=== PATIENT | female | born 1990 | race Two or more races ===

== ENCOUNTER 2021-04-19 12:54 | Emergency (ER) | payer OTHER, MEDICAID, SELFPAY ==
[2021-04-19 13:42] VITALS: BP 137/65; PULSE 78; RESP 18; TEMP 36.4; O2SAT 97; BMI 47.8
[2021-04-19 14:45] LABS: MANUAL DIFF FLAG NO
[2021-04-19 14:46] LABS: Basophils Percent Auto 0.4 % (0-2); Eosinophils Absolute Auto 0.1 X10*3/uL (0.0-0.4); Eosinophils Percent Auto 0.9 % (0-4); Hematocrit 38.7 % (37-47); Hemoglobin 13.2 g/dl (12.0-16.0); Imm Gran Abs Auto 0.03 X10*3/uL (0.00-0.03); Imm Gran Pct Auto 0.3 % (0.0-0.4); Lymphocytes Absolute Auto 3.4 X10*3/uL (1.2-4.9); Lymphocytes Percent Auto 30.1 % (20-40); Mean Corpuscular HGB Conc 34.1 g/dl (31.0-35.0); Mean Corpuscular Hemoglobin 30.1 pg (27.0-33.0); Mean Corpuscular Volume 88.4 fL (80-98); Mean Platelet Volume 9.8 fL (9.4-12.3); Monocytes Absolute Auto 0.6 X10*3/uL (0.1-1.2); Monocytes Percent Auto 5.6 % (2-11); Neutrophils Percent Auto 62.7 % (45-73); Platelet Count 286 X10*3/uL (160-400); Red Blood Count 4.38 X10*6/uL (4.20-5.50); Red Cell Distribution Width 12.8 % (11.0-16.0); White Blood Count 11.1 X10*3/uL (4.8-10.8)
[2021-04-19 15:01] LABS: Alanine Aminotransferase 17 U/L (0-31); Albumin Level 4.1 g/dL (3.5-5.0); Alkaline Phosphatase 63 U/L (39-117); Anion Gap 11 (12-20); Aspartate Amino Transferase 17 U/L (5-31); Bilirubin Total 0.2 mg/dL (0.0-1.0); Blood Urea Nitrogen 7 mg/dL (9-16); Calcium 9.7 mg/dL (8.4-10.2); Carbon Dioxide 28 mmol/L (22-29); Chloride 106 mmol/L (96-108); Creatinine Clr Calc Pharmacy 151.6; Estimated Glomerular Filt Rate > 60; Glucose Random 100 mg/dL (60-115); Potassium 4.2 mmol/L (3.3-5.1); Sodium 141 mmol/L (135-145); Total Protein 8.3 g/dL (6.5-8.0)
[2021-04-19 15:03] LABS: COVID-19 Test Negative (Negative); IDNOW Serial# 9DD0AD1C
--- NOTE | 2021-04-19 18:06 | ED_ITS ---
HPI - General Adult General Chief complaint: General Medical Stated complaint: fever Time Seen by Provider: 04/19/21 18:06 Source: patient and slip caster Mode of arrival: ambulatory Limitations: no limitations History of Present Illness HPI narrative: 31-year-old female came in for evaluation of fever and right ear pain. Subjective fever for the past 3 days, complaining of right ear pain, sore throat, patient exposed to a sick family member last week. Patient otherwise decline coughing or fever. Related Data Previous Rx's Medication Instructions Recorded ciprofloxacin HCl 250 mg tablet 250 mg PO BID 3 Days #6 tab 04/07/21 amoxicillin 500 mg tablet 500 mg PO BID #14 tab 04/19/21 Allergies Allergy/AdvReac Type Severity Reaction Status Date / Time No Known Allergies Allergy Verified 04/07/21 17:50 Review of Systems Review of Systems: All other systems are reviewed and are negative Constitutional: Reports as per HPI and Reports no additional constitutional complaints Eyes: Reports as per HPI and Reports no additional eye complaints Reports system reviewed and no additional complaints, except as documented Cardiovascular: Reports as per HPI and Reports no additional cardiovascular complaints Respiratory: Reports as per HPI and Reports no additional respiratory complaints Gastrointestinal: Reports as per HPI and Reports no additional gastrointestinal complaints Genitourinary: Reports no additional female genitourinary complaints Musculoskeletal: Reports no additional musculoskeletal complaints Skin/Breast: Reports system reviewed and no additional complaints, except as docu Psychiatric: Reports no additional psychiatric complaints Endocrine: Reports no additional endocrine complaints Hematologic/Lymphatic: Reports no additional hematologic/lymphatic complaints Allergic/Immunologic: Reports no additional allergic/immunologic complaints Reports system reviewed and no additional complaints, except as documented and Reports Abnormal speech present [facility] Past Medical History Medical History Chest pain CLIFTON (generalized anxiety disorder) Mild recurrent major depression Morbid obesity due to excess calories Neck mass Surgical History No pertinent past surgical history Family History Family History Mother Stroke Father Cancer Maternal Aunt Breast cancer Social History Social History Housing: House (living with someone) Alcohol intake: never Patient Tobacco Use Status: Never used Tobacco e-Cigarette/Vaping Use: Never Used Second Hand Smoke Exposure: No Advance Directives: No Advance Directives Information Provided: No Patient : No service: No Current occupational status: disabled Physical Exam Vital Signs: Vital Signs: Last Vital Signs Temp 97.6 F 04/19/21 13:42 Pulse 78 04/19/21 13:42 Resp 18 04/19/21 13:42 BP 137/65 04/19/21 13:42 Pulse Ox 97 04/19/21 13:42 Body Mass Index 47.8 Vital signs have been reviewed as appeared to be correct. Blood pressure normal. Heart rate normal. Respiration rate normal. Temperature normal. Oxygen saturation normal. Appearance: Alert. Oriented X3. No acute distress. Head: Normal external exam. Normocephalic. Atraumatic. No [place] signs noted. No raccoon eyes noted Eyes: PERRLA. EOMI. Conjunctiva and sclera normal. Eyelids normal. ENT: Right TM erythema, Pharynx normal. Uvula midline. Moist mucous membranes. No trismus noted. No drooling noted. No muffled voice noted. Neck: Normal inspection. Neck supple. FROM. No adenopathy. Thyroid Normal. No meningeal signs. No neck mass noted. CVS: Normal heart rate and rhythm. Heart sound normal. No murmurs noted. Pulses normal throughout. Respiratory: No respiratory distress. Painless inspiration. Breath sounds normal. No wheezes/rales/rhonchi noted. Chest nontender. No accessory muscle usage noted or decreased air movement noted. Abdomen: Soft and nontender. Bowel sounds normal in all 4 quadrants. No distention noted. No organomegaly noted. No visible injury noted. Back: No CVA tenderness. Full range of motion noted. Skin: Skin warm and dry. Normal skin color. Normal skin turgor. No rashes/lesions/lacerations noted. Extremities: No lower extremity edema. Extremities exhibit normal range of motion. Extremities nontender. Neuro: Oriented X 3. Cranial nerve exam: II-XII are grossly intact No motor deficit. No sensory deficit. Reflexes normal. Course Course Course Narrative: Assessment and plan. 31-year-old female came in for evaluation of fever, physical exam is consistent with right otitis media, patient is negative for COVID. Will start the patient on amoxicillin. Medical Decision Making Lab Data Lab results reviewed: Yes I reviewed the patient's lab results. Result diagrams: 04/19/21 14:38 04/19/21 14:38 Labs: Lab Results 04/19/21 04/19/21 04/19/21 Range/Units 14:34 14:38 14:38 WBC 11.1 H (4.8-10.8) X10*3/uL RBC 4.38 (4.20-5.50) X10*6/uL Hgb 13.2 (12.0-16.0) g/dl Hct 38.7 (37-47) % MCV 88.4 (80-98) fL MCH 30.1 (27.0-33.0) pg MCHC 34.1 (31.0-35.0) g/dl RDW 12.8 (11.0-16.0) % Plt Count 286 (160-400) X10*3/uL MPV 9.8 (9.4-12.3) fL Immature Gran % (Auto) 0.3 (0.0-0.4) % Neut % (Auto) 62.7 (45-73) % Lymph % (Auto) 30.1 (20-40) % [place] % (Auto) 5.6 (2-11) % Eos % (Auto) 0.9 (0-4) % Baso % (Auto) 0.4 (0-2) % Lymph # (Auto) 3.4 (1.2-4.9) X10*3/uL [place] # (Auto) 0.6 (0.1-1.2) X10*3/uL Eos # (Auto) 0.1 (0.0-0.4) X10*3/uL Baso # (Auto) 0.0 (0.0-0.2) X10*3/uL Abs Immat Gran (auto) 0.03 (0.00-0.03) X10*3/uL Absolute Neuts (auto) 7.0 (2.0-8.3) X10*3/uL Absolute Nucleated RBC 0.000 (0.0-0.012) X10*3/uL Nucleated RBC % (auto) 0.0 (0.0-0.2) /100WBC Sodium 141 (135-145) mmol/L Potassium 4.2 (3.3-5.1) mmol/L Chloride 106 (96-108) mmol/L Carbon Dioxide 28 (22-29) mmol/L Anion Gap 11 L (12-20) BUN 7 L (9-16) mg/dL Creatinine 0.67 (0.5-1.4) mg/dL Estim Creat Clear Calc 151.6 Estimated GFR > 60 Random Glucose 100 (60-115) mg/dL Calcium 9.7 (8.4-10.2) mg/dL Total Bilirubin 0.2 (0.0-1.0) mg/dL AST 17 (5-31) U/L ALT 17 (0-31) U/L Alkaline Phosphatase 63 (39-117) U/L Total Protein 8.3 H (6.5-8.0) g/dL Albumin 4.1 (3.5-5.0) g/dL COVID-19 (ROXANNE) Negative (Negative) COVID-19 Clin Com See Note Discharge Plan Discharge Clinical Impression: Otitis media Qualifiers: Otitis media type: unspecified Chronicity: acute Qualified Code(s): H66.90 - Otitis media, unspecified, unspecified ear Patient Disposition: Home, Self-Care Instructions: Ear Infection (ED) Prescriptions: New amoxicillin 500 mg tablet 500 mg PO BID Qty: 14 RF: 0 No Action ciprofloxacin HCl 250 mg tablet 250 mg PO BID 3 Days Qty: 6 RF: 0 Referrals: Rosey Young MD [Primary Care Provider] - 2 days
== END 2021-04-19 18:42 | disposition home or self-care (01) ==
PROVIDERS: Emergency Provider Emergency Medicine; PCP Internal Medicine
DX: H66.90 Otitis media, unspecified, unspecified ear (principal); R50.9 Fever, unspecified; Z20.822 Contact with and (suspected) exposure to COVID-19; Z79.899 Other long term (current) drug therapy
CPT/HCPCS: 36415; 80053; 85025; 87635; 99283

== ENCOUNTER → 2021-05-13 11:17 | Outpatient (BNVA) | payer OTHER, MEDICAID, SELFPAY | PROVIDERS: PCP Internal Medicine; Referring Provider Internal Medicine; Visit Provider Surgery | DX: L72.0 Epidermal cyst (principal) | CPT/HCPCS: 99202 ==

== ENCOUNTER 2021-06-30 11:20 | Outpatient (REF) | payer OTHER, SELFPAY ==
[2021-06-30 13:30] LABS: COVID-19 Test Negative (Negative); IDNOW Serial# 16C4AD1C
== END 2021-06-30 11:21 | disposition home or self-care (01) ==
LOC: HO.LAB 11:20
PROVIDERS: Visit Provider Internal Medicine
DX: Z20.822 Contact with and (suspected) exposure to COVID-19 (principal)
CPT/HCPCS: 36415; 87635; C9803

== ENCOUNTER 2021-07-29 20:30 | Emergency (ER) | payer OTHER, SELFPAY ==
--- NOTE | 2021-07-29 20:36 | ED_ITS ---
HPI - Chest Pain General Chief Complaint: Chest Pain Stated Complaint: anxiety Time Seen by Provider: 07/29/21 20:35 Source: patient Mode of arrival: ambulatory Limitations: no limitations History of Present Illness HPI narrative: patient with morbidly obese with history of recurrent chest pain withl anxiety disorder and depression BiBA for chest pain started 2 hours ago with anxiety him and that in the past patient does get pain almost every month. No diaphoresis no shortness of breath pain increases on palpation Related Data Previous Rx's Medication Instructions Recorded ciprofloxacin HCl 250 mg tablet 250 mg PO BID 3 Days #6 tab 04/07/21 amoxicillin 500 mg tablet 500 mg PO BID #14 tab 04/19/21 lorazepam 1 mg tablet (Ativan) 1 mg PO BEDTIME PRN #10 tab 07/29/21 Allergies Allergy/AdvReac Type Severity Reaction Status Date / Time No Known Allergies Allergy Verified 05/13/21 11:31 Review of Systems Verdana 4l Review of Systems: Yes all other systems are reviewed and Verdana 4d are negative PMFSH Past Medical History Medical History Chest pain Epidermal cyst of neck [place] (generalized anxiety disorder) Mild recurrent major depression Morbid obesity due to excess calories Neck mass Surgical History No pertinent past surgical history Family History Family History Mother Stroke Father Cancer Maternal Aunt Breast cancer Social History Social History Housing: House (living with someone) Alcohol intake: never Patient Tobacco Use Status: Never used Tobacco e-Cigarette/Vaping Use: Never Used Second Hand Smoke Exposure: No Advance Directives: No Advance Directives Information Provided: No Patient : No service: No Current occupational status: disabled Physical Exam Verdana 4l Vital Signs: Verdana 4d Verdana 4d Vital Signs: Verdana 4d Verdana 4Bd Last Vital Signs Verdana 4d Software Development Leader New 4d Software Development Leader New 4d Temp 98.3 F 07/29/21 20:40 Software Development Leader New 4d Pulse 102 H 07/29/21 20:40 Software Development Leader New 4d Resp 17 07/29/21 20:40 BP 152/79 H 07/29/21 20:40 Pulse Ox 96 07/29/21 20:40 BMI result Body Mass Index 47.1 Appearance: Alert. Oriented X3. No acute distress. anxious Eyes: no pelvic ENT: Pharynx normal. Oral Mucosa moist Neck: Normal inspection. Neck supple. CVS: sinus tachycardia No murmur/ gallopPulses normal. mid chest wall tenderness Respiratory: No respiratory distress. Equal air entry bilateral, no wheezing/rales/rhonchi Abdomen: Soft and nontender. Bowel sounds are present, no mass palpable, no CVA tenderness Skin: Skin warm and dry. Normal skin color. Normal skin turgor. Extremities: No lower extremity edema. No calf tenderness Neuro: Oriented X 3. MDM - Chest Pain MDM Narrative Medical decision making narrative: patient atypical chest pain with anxiety no acute EKG changes troponin negative discharge patient home on anxiety medications Ativan Lab Data Attestation: I reviewed the patient's lab results. Labs: Lab Results 07/29/21 Range/Units 20:52 Troponin I High Sens < 3.5 (<3.5-17.0) ng/L ECG Data ECG #1: Attestation: I personally reviewed and interpreted this ECG as follows: Interpretation: 7 seconds and he with heart rate of 102 beats per normal intervals normal axis no acute ST wave changes impression sinus tachycardia Discharge Plan Discharge Clinical Impression: CLIFTON (generalized anxiety disorder), Atypical chest pain Patient Disposition: Home, Self-Care Instructions: Chest Pain (DC), Anxiety (ED) Additional Instructions: take medication for anxiety as advised and follow up with your PCP Prescriptions: New lorazepam [Ativan] 1 mg tablet 1 mg PO BEDTIME PRN (Reason: anxiety) Qty: 10 0RF No Action amoxicillin 500 mg tablet 500 mg PO BID Qty: 14 0RF ciprofloxacin HCl 250 mg tablet 250 mg PO BID 3 Days Qty: 6 0RF
[2021-07-29 20:40] VITALS: BP 152/79; PULSE 102; RESP 17; TEMP 36.8; O2SAT 96; BMI 47.1
--- NOTE | 2021-07-29 20:53 | ECG_ITS ---
Test Reason : CP Blood Pressure : / mmHG Vent. Rate : 102 BPM Atrial Rate : 102 BPM P-R Int : 136 ms QRS Dur : 098 ms QT Int : 364 ms P-R-T Axes : 043 019 020 degrees QTc Int : 474 ms Sinus tachycardia Otherwise normal ECG No previous ECGs available Referred By: Derek Mena Electronically Signed By:ENEDINA WYNN MD
[2021-07-29] MEDS: LORazepam 1 MG TABLET 2 MG PO (21:03)
[2021-07-29 21:16] LABS: Troponin-I High Sensitivity < 3.5 ng/L (<3.5-17.0)
== END 2021-07-29 21:44 | disposition home or self-care (01) ==
PROVIDERS: Emergency Provider Internal Medicine; PCP Internal Medicine
DX: R07.89 Other chest pain (principal); F41.1 Generalized anxiety disorder
CPT/HCPCS: 36415; 84484; 93005; 99283

== ENCOUNTER 2021-08-26 10:20 | Outpatient (REF) | payer OTHER, SELFPAY ==
[2021-08-26 10:45] LABS: MANUAL DIFF FLAG NO
[2021-08-26 10:49] LABS: Basophils Percent Auto 0.3 % (0-2); Eosinophils Absolute Auto 0.1 X10*3/uL (0.0-0.4); Eosinophils Percent Auto 1.1 % (0-4); Hematocrit 38.2 % (37.0-47.0); Hemoglobin 12.8 g/dl (12.0-16.0); Imm Gran Abs Auto 0.06 X10*3/uL (0.00-0.03); Imm Gran Pct Auto 0.6 % (0.0-0.4); Lymphocytes Absolute Auto 4.2 X10*3/uL (1.2-4.9); Mean Corpuscular HGB Conc 33.5 g/dl (31.0-35.0); Mean Corpuscular Volume 89.7 fL (80.0-98.0); Mean Platelet Volume 10.2 fL (9.4-12.3); Monocytes Absolute Auto 0.6 X10*3/uL (0.1-1.2); Monocytes Percent Auto 6.5 % (2-11); Neutrophils Absolute Auto 4.9 x10*3/uL (2.0-8.3); Neutrophils Percent Auto 49.5 % (45-73); Platelet Count 298 X10*3/uL (160-400); Red Blood Count 4.26 X10*6/uL (4.20-5.50); White Blood Count 9.9 X10*3/uL (4.8-10.8)
[2021-08-26 11:30] LABS: Alanine Aminotransferase 17 U/L (0-31); Albumin Level 3.9 g/dL (3.5-5.0); Alkaline Phosphatase 62 U/L (39-117); Anion Gap 11 (12-20); Aspartate Amino Transferase 15 U/L (5-31); Bilirubin Total 0.4 mg/dL (0.0-1.0); Blood Urea Nitrogen 8 mg/dL (9-16); Calcium 8.6 mg/dL (8.4-10.2); Carbon Dioxide 26 mmol/L (22-29); Chloride 106 mmol/L (96-108); Cholesterol 172 mg/dL; Estimated Glomerular Filt Rate > 60; Glucose Fasting 108 mg/dL (60-99); HDL Cholesterol 34 mg/dL; LDL Cholesterol Calculated 79 mg/dl; Sodium 139 mmol/L (135-145); Total Protein 7.7 g/dL (6.5-8.0); Triglycerides 297 mg/dL
[2021-08-26 11:52] LABS: Thyroid Stimulating Hormone 13.86 uIU/mL (0.32-4.0)
[2021-08-30 13:41] LABS: Vitamin D 25-OH, D2 <4 ng/mL; Vitamin D 25-OH, D3 11 ng/mL; Vitamin D 25-OH, Total 11 ng/mL (30-100)
== END 2021-08-26 10:21 | disposition home or self-care (01) ==
LOC: HO.LAB 10:20
PROVIDERS: PCP Internal Medicine; Visit Provider Internal Medicine
DX: E66.01 Morbid (severe) obesity due to excess calories (principal); E78.5 Hyperlipidemia, unspecified; D64.9 Anemia, unspecified; E55.9 Vitamin D deficiency, unspecified
CPT/HCPCS: 36415; 80053; 80061; 82306; 84443; 85025

== ENCOUNTER → 2021-09-01 10:21 | Outpatient (REF) | payer OTHER, SELFPAY ==
--- NOTE | 2021-09-01 10:25 | CA_ITS ---
Acquisition Time: 2021-09-01 10:57:30 Total Exercise Time: 00:05:16 Test Indications: Chest Pain Medications: LORAZAPAM SERTRALINE Protocol: KLARISSA Max HR: 160 BPM 85% of Pred: 187 BPM Max BP: 204/062 mmHG Max Work Load: 7.0 METS Exercise stress test with exercise 5 min 16 sec of Klarissa protocol, with mild sob, no chest discomfort, with fatigue and request to stop, without arrythmia, with hypertensive response to exercise with max BP 204/62, without EKG changes meeting criteria for ischemia. In recovery her BP improved to 130/80 after 4 min rest. Test reviewed with Dr Young. Referred By: Rosey Lantigua Overread By: MONTSE LINARES
== END ==
LOC: HO.CARD 10:21
PROVIDERS: PCP Internal Medicine; Visit Provider Internal Medicine
DX: R07.9 Chest pain, unspecified (principal)
CPT/HCPCS: 93017

== ENCOUNTER 2021-11-16 12:06 | Outpatient (REF) | payer OTHER, SELFPAY ==
[2021-11-16 14:12] LABS: Free T4 (Free Thyroxine) 0.78 ng/dL (0.71-1.85); Thyroid Stimulating Hormone 3.56 uIU/mL (0.32-4.0)
[2021-11-18 01:35] LABS: Thyroglobulin Antibodies 14 IU/mL (< or = 1); Thyroid Peroxidase Antibodies 821 IU/mL (<9)
== END 2021-11-16 12:07 | disposition home or self-care (01) ==
LOC: HO.LAB 12:06
PROVIDERS: PCP Internal Medicine; Visit Provider Internal Medicine
DX: R79.89 Other specified abnormal findings of blood chemistry (principal)
CPT/HCPCS: 36415; 84439; 84443; 86376; 86800

== ENCOUNTER 2022-01-21 19:08 | Emergency (ER) | payer OTHER, SELFPAY ==
--- NOTE | 2022-01-21 19:13 | ECG_ITS ---
Test Reason : CP Blood Pressure : / mmHG Vent. Rate : 109 BPM Atrial Rate : 109 BPM P-R Int : 136 ms QRS Dur : 090 ms QT Int : 352 ms P-R-T Axes : 044 014 012 degrees QTc Int : 474 ms Sinus tachycardia Otherwise normal ECG When compared with ECG of 29-JUL-2021 20:36, No significant change was found Referred By: Generic ED Physician Electronically Signed By:Josh Young
[2022-01-21 19:17] VITALS: BP 135/75; PULSE 111; RESP 18; TEMP 37.1; O2SAT 100; BMI 64.5
[2022-01-21 20:04] LABS: MANUAL DIFF FLAG NO
[2022-01-21 20:06] LABS: Basophils Absolute Auto 0.1 X10*3/uL (0.0-0.2); Basophils Percent Auto 0.4 % (0-2); Eosinophils Absolute Auto 0.1 X10*3/uL (0.0-0.4); Eosinophils Percent Auto 0.7 % (0-4); Hematocrit 39.6 % (37.0-47.0); Hemoglobin 13.5 g/dl (12.0-16.0); Imm Gran Abs Auto 0.03 X10*3/uL (0.00-0.03); Imm Gran Pct Auto 0.3 % (0.0-0.4); Lymphocytes Absolute Auto 3.4 X10*3/uL (1.2-4.9); Lymphocytes Percent Auto 28.7 % (20-40); Mean Corpuscular HGB Conc 34.1 g/dl (31.0-35.0); Mean Corpuscular Hemoglobin 30.1 pg (27.0-33.0); Mean Corpuscular Volume 88.2 fL (80.0-98.0); Mean Platelet Volume 10.8 fL (9.4-12.3); Monocytes Absolute Auto 0.6 X10*3/uL (0.1-1.2); Monocytes Percent Auto 5.2 % (2-11); Neutrophils Absolute Auto 7.6 x10*3/uL (2.0-8.3); Neutrophils Percent Auto 64.7 % (45-73); Platelet Count 274 X10*3/uL (160-400); Red Blood Count 4.49 X10*6/uL (4.20-5.50); Red Cell Distribution Width 12.6 % (11.0-16.0); White Blood Count 11.8 X10*3/uL (4.8-10.8)
[2022-01-21 20:23] LABS: Alanine Aminotransferase 21 U/L (0-31); Albumin Level 4.2 g/dL (3.5-5.0); Alkaline Phosphatase 72 U/L (39-117); Anion Gap 11 (12-20); Aspartate Amino Transferase 16 U/L (5-31); Bilirubin Total 0.2 mg/dL (0.0-1.0); Blood Urea Nitrogen 6 mg/dL (9-16); Calcium 8.7 mg/dL (8.4-10.2); Carbon Dioxide 26 mmol/L (22-29); Chloride 106 mmol/L (96-108); Creatinine Clr Calc Pharmacy 190.5; Estimated Glomerular Filt Rate > 60; Glucose Random 137 mg/dL (60-115); Potassium 3.7 mmol/L (3.3-5.1); Sodium 139 mmol/L (135-145); Total Protein 8.4 g/dL (6.5-8.0)
[2022-01-21 20:24] LABS: Troponin-I High Sensitivity < 3.5 ng/L (<3.5-17.0)
[2022-01-21 20:49] LABS: COVID-19 Test Negative (Negative); IDNOW Serial# 55D5AD1C
[2022-01-21 22:48] VITALS: BP 111/60; PULSE 104; RESP 18; TEMP 37.1; O2SAT 96
[2022-01-22 00:45] LABS: Lipase 31 U/L (8-78)
== END 2022-01-22 00:52 | disposition left against medical advice (07) ==
PROVIDERS: Emergency Medicine; Emergency Provider Emergency Medicine; PCP Internal Medicine
DX: R07.9 Chest pain, unspecified (principal); Z20.822 Contact with and (suspected) exposure to COVID-19; R51.9 Headache, unspecified; E66.01 Morbid (severe) obesity due to excess calories; Z68.44 Body mass index [BMI] 60.0-69.9, adult
CPT/HCPCS: 36415; 80053; 83690; 84484; 85025; 87635; 93005; 99283

== ENCOUNTER 2022-02-09 14:05 | Emergency (ER) | payer OTHER, SELFPAY ==
[2022-02-09 15:44] VITALS: BP 120/53; PULSE 103; RESP 18; TEMP 36.8; O2SAT 97; BMI 42.2
[2022-02-09 15:58] LABS: MANUAL DIFF FLAG NO
[2022-02-09 16:00] LABS: Basophils Percent Auto 0.3 % (0-2); Eosinophils Absolute Auto 0.1 X10*3/uL (0.0-0.4); Eosinophils Percent Auto 0.3 % (0-4); Hematocrit 39.2 % (37.0-47.0); Hemoglobin 13.3 g/dl (12.0-16.0); Imm Gran Abs Auto 0.05 X10*3/uL (0.00-0.03); Imm Gran Pct Auto 0.3 % (0.0-0.4); Lymphocytes Percent Auto 19.8 % (20-40); Mean Corpuscular HGB Conc 33.9 g/dl (31.0-35.0); Mean Corpuscular Volume 88.5 fL (80.0-98.0); Mean Platelet Volume 9.7 fL (9.4-12.3); Monocytes Absolute Auto 0.6 X10*3/uL (0.1-1.2); Monocytes Percent Auto 3.9 % (2-11); Neutrophils Absolute Auto 11.3 x10*3/uL (2.0-8.3); Neutrophils Percent Auto 75.4 % (45-73); Platelet Count 293 X10*3/uL (160-400); Red Blood Count 4.43 X10*6/uL (4.20-5.50); Red Cell Distribution Width 12.6 % (11.0-16.0)
[2022-02-09 16:27] LABS: Alanine Aminotransferase 18 U/L (0-31); Alkaline Phosphatase 62 U/L (39-117); Anion Gap 14 (12-20); Aspartate Amino Transferase 18 U/L (5-31); Bilirubin Total 0.4 mg/dL (0.0-1.0); Blood Urea Nitrogen 7 mg/dL (9-16); Calcium 8.9 mg/dL (8.4-10.2); Carbon Dioxide 25 mmol/L (22-29); Chloride 102 mmol/L (96-108); Creatinine Clr Calc Pharmacy 137.8; Estimated Glomerular Filt Rate > 60; Glucose Random 153 mg/dL (60-115); Lipase 25 U/L (8-78); Sodium 137 mmol/L (135-145); Total Protein 8.2 g/dL (6.5-8.0)
[2022-02-09 20:44] VITALS: BP 135/77; PULSE 108; TEMP 36.5; O2SAT 95
== END 2022-02-10 01:49 | disposition left against medical advice (07) ==
LOC: HO.ED 02-10 01:48
PROVIDERS: Emergency Medicine; Emergency Provider Emergency Medicine; PCP Internal Medicine
DX: R10.11 Right upper quadrant pain (principal)
CPT/HCPCS: 36415; 80053; 83690; 85025; 99282; 99283

== ENCOUNTER 2022-02-11 11:37 | Inpatient (IN) | payer OTHER, SELFPAY ==
--- NOTE | ~2022-02-11 | CT_ITS ---
EXAMINATION: CT abdomen pelvis wo con CLINICAL INFORMATION: Abdominal pain abscess right flank area. COMPARISON: No prior CT available for comparison. TECHNIQUE: Multidetector volumetric imaging was performed from the superior aspect of the liver through the pubic symphysis , this is a noncontrasted study. Sagittal and coronal reformatted images were obtained on the technologist's workstation. This CT examination was performed using dose optimization techniques as appropriate, variously including the following: *Automated exposure control *Adjustment of mA and/or kV according to patient size (this includes techniques or standardized protocols for targeted exams where dose is matched to indication/reason for exam; i.e. extremities or head) *Use of iterative reconstruction technique DLP: 1141 mGy-cm FINDINGS: LOWER THORAX: Included lung bases are clear. HEPATOBILIARY: Diffusely hypodense liver suggesting hepatic steatosis, GALLBLADDER: Gallbladder unremarkable. SPLEEN: Spleen is normal in size. PANCREAS: No focal mass or ductal dilatation. STOMACH AND GASTROINTESTINAL TRACT: Stomach is grossly unremarkable. There is no bowel distention or thickening. No CT evidence of appendicitis. ADRENALS: No adrenal nodules. KIDNEYS/URETERS: No hydronephrosis, stones or solid mass lesions. URINARY BLADDER: Partially decompressed. PELVIC VISCERA: Unremarkable PERITONEUM: No free air or fluid. LYMPH NODES: No lymphadenopathy. VASCULAR:Abdominal aorta normal in size, no aneurysm found. BONES, ABDOMINAL WALL AND SOFT TISSUES: There is a skin thickening along the posterior right lateral abdominal wall, focal area of opacity roughly measures 5 x 4 cm involving the subcutaneous fat, with attenuation suggesting fluid contents, this is concerning for possible hematoma, cannot rule out abscess. Evaluation of which is limited on this noncontrasted study. CT/CT abdomen pelvis wo con IMPRESSION: CT confirm area of skin thickening and loculated fluid along the posterior right lateral abdominal wall concerning for possible soft tissue lesion, hematoma and/or abscess. Evaluation is limited on a noncontrasted study, this however is amenable for ultrasound evaluation and possible ultrasound guided drainage if needed. Diffusely hypodense liver suggesting hepatic steatosis. (Referring physician staff is being called, to be alerted of the above findings and recommendations.)
[2022-02-11 12:26] VITALS: BP 145/79; PULSE 105; RESP 18; TEMP 36.7; O2SAT 97; BMI 42.0
[2022-02-11 12:50] LABS: MANUAL DIFF FLAG NO
[2022-02-11 12:52] LABS: Basophils Percent Auto 0.3 % (0-2); Eosinophils Absolute Auto 0.1 X10*3/uL (0.0-0.4); Eosinophils Percent Auto 0.7 % (0-4); Hematocrit 39.8 % (37.0-47.0); Hemoglobin 13.4 g/dl (12.0-16.0); Imm Gran Abs Auto 0.05 X10*3/uL (0.00-0.03); Imm Gran Pct Auto 0.3 % (0.0-0.4); Lymphocytes Absolute Auto 2.9 X10*3/uL (1.2-4.9); Lymphocytes Percent Auto 18.9 % (20-40); Mean Corpuscular HGB Conc 33.7 g/dl (31.0-35.0); Mean Corpuscular Volume 89.2 fL (80.0-98.0); Mean Platelet Volume 9.6 fL (9.4-12.3); Monocytes Absolute Auto 0.6 X10*3/uL (0.1-1.2); Monocytes Percent Auto 4.2 % (2-11); Neutrophils Absolute Auto 11.4 x10*3/uL (2.0-8.3); Neutrophils Percent Auto 75.6 % (45-73); Platelet Count 341 X10*3/uL (160-400); Red Blood Count 4.46 X10*6/uL (4.20-5.50); Red Cell Distribution Width 12.6 % (11.0-16.0); White Blood Count 15.1 X10*3/uL (4.8-10.8)
[2022-02-11 13:08] LABS: Anion Gap 15 (12-20); Blood Urea Nitrogen 9 mg/dL (9-16); Calcium 8.9 mg/dL (8.4-10.2); Carbon Dioxide 24 mmol/L (22-29); Chloride 102 mmol/L (96-108); Creatinine Clr Calc Pharmacy 125.1; Estimated Glomerular Filt Rate > 60; Glucose Random 209 mg/dL (60-115); Potassium 3.8 mmol/L (3.3-5.1); Sodium 137 mmol/L (135-145)
[2022-02-11 13:18] LABS: Lactic Acid 2.5 mmol/L (0.5-2.0)
[2022-02-11 14:03] LABS: Alanine Aminotransferase 15 U/L (0-31); Albumin Level 4.1 g/dL (3.5-5.0); Alkaline Phosphatase 69 U/L (39-117); Aspartate Amino Transferase 14 U/L (5-31); Bilirubin Direct 0.2 mg/dL (0.0-0.5); Bilirubin Total 0.3 mg/dL (0.0-1.0); Lactate Dehydrogenase 146 U/L (122-220); Lipase 26 U/L (8-78); Total Protein 8.2 g/dL (6.5-8.0)
[2022-02-11 14:09] LABS: HCG Quantitative < 2 mIU/mL
[2022-02-11 14:34] LABS: Erythrocyte Sedimentation Rate 74 MM/HR (0-20)
[2022-02-11 14:48] LABS: Reflex Lactate? Lactic Acid Added
--- NOTE | 2022-02-11 15:05 | ED_ITS ---
HPI - Skin/Abscess/Foreign Bdy General Chief complaint: Wound/Laceration Stated complaint: R side abd pain Time Seen by Provider: 02/11/22 12:54 Source: patient Mode of arrival: ambulatory Limitations: no limitations History of Present Illness HPI narrative: 31-year-old female with a past medical history of thyroid disease and obesity presenting to the ED with complaints of an abscess to her right flank/abdominal wall that has been present for approximately 1-2 weeks worse today with purulent discharge. Reports that she was in the waiting room 2 days ago although had to leave due to she waited a few hours and could not continue waiting due to she was hungry and pain. She reports that she has been having subjective fevers, chills. Denies any measured fevers, dizziness, headaches, neck pain/stiffness, recent falls or trauma, history of MRSA, any IV drug use, or any other symptoms complaints or concerns at this time. complaint: abscess/boil Onset (ago): week(s) (1-2) Location: generalized (right flank/abdominal wall) Severity: severe Severity scale (1-10): >10 Quality: aching and constant Pain Consistency: constant Relieving factors: none Exacerbating factors: palpation and movement Context: none Associated symptoms: fever and chills Treatments prior to arrival: bandages Related Data Previous Rx's Medication Instructions Recorded lorazepam 1 mg tablet (Ativan) 1 mg PO BEDTIME PRN anxiety 30 08/18/21 days #15 tabs sertraline 25 mg tablet 25 mg PO DAILY 90 days #90 tabs 08/18/21 cholecalciferol (vitamin D3) 50 50 mcg PO DAILY 90 days #90 caps 08/30/21 mcg (2,000 unit) capsule Allergies Allergy/AdvReac Type Severity Reaction Status Date / Time No Known Allergies Allergy Verified 02/09/22 15:44 Review of Systems Review of Systems: Constitutional : Denies history of same, Denies any other sites involved, Denies IV drug use, Denies history of MRSA, Denies swollen glands, Denies injury, Denies Fever, Denies Chills, + Sig Pain, Denies Systemic symptoms Cardiovascular : No Chest Pain, No SOB Respiratory : No Dyspnea Gastrointestinal : No abdominal pain Musculoskeletal : No Joint Swelling Skin : + abscess with surrounding erythema and discharge, No skin laceration, No Foreign bodies, No spreading rash, Denies bites Neuro : No Weakness, No Numbness/tingling Psych : No SI/HI/thoughts of self injury Yes all other systems are reviewed and are negative [facility] Past Medical History Attestation statement: The following information was validated with the patient. Source: old records reviewed and nursing notes reviewed Medical History Chest pain Elevated TSH Epidermal cyst of neck [place] (generalized anxiety disorder) Hypovitaminosis D Mild recurrent major depression Morbid obesity due to excess calories Neck mass Surgical History No pertinent past surgical history Family History Family History Mother Stroke Father Cancer Maternal Aunt Breast cancer Social History Social History Housing: House (living with someone) Alcohol intake: never Patient Tobacco Use Status: Never used Tobacco e-Cigarette/Vaping Use: Never Used Second Hand Smoke Exposure: No Advance Directives: No Advance Directives Information Provided: No service: No Current occupational status: disabled Cognitive needs: No Hearing needs: No Vision needs: No Physical Exam Vital Signs: Vital Signs: Last Vital Signs Temp 98.1 F 02/11/22 12:26 Pulse 105 H 02/11/22 12:26 Resp 18 02/11/22 12:26 BP 145/79 H 02/11/22 12:26 Pulse Ox 97 02/11/22 12:26 O2 Del Method 02/11/22 12:26 BMI result Body Mass Index 42.0 vital signs have been reviewed as normal and appeared to be correct. Blood pressure 145/79 Heart rate 105. Respiration rate normal. Temperature normal. Oxygen saturation normal. Appearance: Alert. Oriented X3. No acute distress. Head: Normal external exam. Normocephalic. Atraumatic. Eyes: PERRLA. EOMI. Conjunctiva and sclera normal. Eyelids normal. ENT: Pharynx normal. Uvula midline. Moist mucous membranes. Neck: Normal inspection. Neck supple. FROM. CVS: Normal heart rate and rhythm. Respiratory: No respiratory distress. Painless inspiration. Abdomen: Soft. Patient reports pain to the right flank otherwise no other tenderness to palpation. Bowel sounds in all 4 quadrants are normal. No organomegaly noted. Skin: Skin warm and dry. Normal skin color. Normal skin turgor. To the right flank/abdominal wall patient has fluctuant abscess with purulent drainage and surrounding erythema consistent with abscess, No streaking noted. no additional rashes/lesions/lacerations noted. Extremities: Extremities exhibit normal range of motion. Extremities nontender. Neuro: Oriented X 3. No motor deficit. No sensory deficit. Reflexes normal. Normal steady gait. No focal neuro deficits noted. Vascular: + radial pulses/+ 2 distal pedal pulses/+2 dorsalis pedis b/l. Normal cap refill. No cyanosis noted to upper extremity nails and lower extremity toes nails. Course Course Course Narrative: 15pm - 31-year-old thyroid disease and obesity female presenting to the ED with complaints of an abscess to her right flank/abdominal wall that has been present for approximately 1-2 weeks worse today with purulent discharge. Reports that she was in the waiting room 2 days ago although had to leave due to she waited a few hours and could not continue waiting due to she was hungry and pain. She reports that she has been having subjective fevers, chills. Labs were obtained while the patient was in the waiting room and [place] [phone]. ESR 74. Random glucose 209. Lactic acid 2.5. Total protein 8.2. Negative for serum . Otherwise all other labs are within normal limits. Therefore at this time will order IV fluids, IV antibiotics 1 g Rocephin, 5 mg of oxycodone, lidocaine and topical lidocaine and a CT scan abdomen pelvis without contrast recommended by Dr. Ortiz and re-evaluate. Reevaluation(s) Reevaluation #1: Patient CT scan abdomen pelvis without IV contrast revealed abscess 5 x 4 cm de ep questioning possible IR drainage needed. Therefore I discussed this case with general surgeon and he actually came down to the emergency department in evaluated the patient assisted me in performing I&D. Therefore at this time patient is now status post I&D of abscess to right flank/abdominal wall. Patient tolerated procedure well. We did place packing. No complications. Will attempt to admit for IV antibiotics for cellulitis/abscess with packing and sepsis. Admitting to the hospitalist to Dr. Salas. Patient understands agrees with this plan. Time: 17:30 MDM - Skin/Abscess/Foreign Bdy Medical Records Attestation: I reviewed the patient's medical records. Lab Data Attestation: I reviewed the patient's lab results. Result diagrams: 02/11/22 12:44 02/11/22 12:44 Labs: Lab Results 02/11/22 02/11/22 02/11/22 Range/Units 12:44 12:44 12:44 WBC 15.1 H (4.8-10.8) X10*3/uL RBC 4.46 (4.20-5.50) X10*6/uL Hgb 13.4 (12.0-16.0) g/dl Hct 39.8 (37.0-47.0) % MCV 89.2 (80.0-98.0) fL MCH 30.0 (27.0-33.0) pg MCHC 33.7 (31.0-35.0) g/dl RDW 12.6 (11.0-16.0) % Plt Count 341 (160-400) X10*3/uL MPV 9.6 (9.4-12.3) fL Immature Gran % (Auto) 0.3 (0.0-0.4) % Neut % (Auto) 75.6 H (45-73) % Lymph % (Auto) 18.9 L (20-40) % [place] % (Auto) 4.2 (2-11) % Eos % (Auto) 0.7 (0-4) % Baso % (Auto) 0.3 (0-2) % Lymph # (Auto) 2.9 (1.2-4.9) X10*3/uL [place] # (Auto) 0.6 (0.1-1.2) X10*3/uL Eos # (Auto) 0.1 (0.0-0.4) X10*3/uL Baso # (Auto) 0.0 (0.0-0.2) X10*3/uL Abs Immat Gran (auto) 0.05 H (0.00-0.03) X10*3/uL Absolute Neuts (auto) 11.4 H (2.0-8.3) x10*3/uL Absolute Nucleated RBC 0.000 (0.0-0.012) X10*3/uL Nucleated RBC % (auto) 0.0 (0.0-0.2) /100WBC ESR (0-20) MM/HR Sodium 137 (135-145) mmol/L Potassium 3.8 (3.3-5.1) mmol/L Chloride 102 (96-108) mmol/L Carbon Dioxide 24 (22-29) mmol/L Anion Gap 15 (12-20) BUN 9 (9-16) mg/dL Creatinine 0.78 (0.5-1.4) mg/dL Estim Creat Clear Calc 125.1 Estimated GFR > 60 Random Glucose 209 H (60-115) mg/dL Lactic Acid 2.5 H* (0.5-2.0) mmol/L Lactic Acid F/U @ 2Hr (0.5-2.0) mmol/L Calcium 8.9 (8.4-10.2) mg/dL Total Bilirubin 0.3 (0.0-1.0) mg/dL Direct Bilirubin 0.2 (0.0-0.5) mg/dL AST 14 (5-31) U/L ALT 15 (0-31) U/L Alkaline Phosphatase 69 (39-117) U/L Lactate Dehydrogenase 146 (122-220) U/L Total Protein 8.2 H (6.5-8.0) g/dL Albumin 4.1 (3.5-5.0) g/dL Lipase 26 (8-78) U/L Beta HCG, Quant < 2 mIU/mL 02/11/22 02/11/22 Range/Units 12:44 15:08 WBC (4.8-10.8) X10*3/uL RBC (4.20-5.50) X10*6/uL Hgb (12.0-16.0) g/dl Hct (37.0-47.0) % MCV (80.0-98.0) fL MCH (27.0-33.0) pg MCHC (31.0-35.0) g/dl RDW (11.0-16.0) % Plt Count (160-400) X10*3/uL MPV (9.4-12.3) fL Immature Gran % (Auto) (0.0-0.4) % Neut % (Auto) (45-73) % Lymph % (Auto) (20-40) % [place] % (Auto) (2-11) % Eos % (Auto) (0-4) % Baso % (Auto) (0-2) % Lymph # (Auto) (1.2-4.9) X10*3/uL [place] # (Auto) (0.1-1.2) X10*3/uL Eos # (Auto) (0.0-0.4) X10*3/uL Baso # (Auto) (0.0-0.2) X10*3/uL Abs Immat Gran (auto) (0.00-0.03) X10*3/uL Absolute Neuts (auto) (2.0-8.3) x10*3/uL Absolute Nucleated RBC (0.0-0.012) X10*3/uL Nucleated RBC % (auto) (0.0-0.2) /100WBC ESR 74 H (0-20) MM/HR Sodium (135-145) mmol/L Potassium (3.3-5.1) mmol/L Chloride (96-108) mmol/L Carbon Dioxide (22-29) mmol/L Anion Gap (12-20) BUN (9-16) mg/dL Creatinine (0.5-1.4) mg/dL Estim Creat Clear Calc Estimated GFR Random Glucose (60-115) mg/dL Lactic Acid (0.5-2.0) mmol/L Lactic Acid F/U @ 2Hr 1.3 (0.5-2.0) mmol/L Calcium (8.4-10.2) mg/dL Total Bilirubin (0.0-1.0) mg/dL Direct Bilirubin (0.0-0.5) mg/dL AST (5-31) U/L ALT (0-31) U/L Alkaline Phosphatase (39-117) U/L Lactate Dehydrogenase (122-220) U/L Total Protein (6.5-8.0) g/dL Albumin (3.5-5.0) g/dL Lipase (8-78) U/L Beta HCG, Quant mIU/mL Imaging Data CT scan abdomen pelvis without IV contrast: Attestation: I personally reviewed and interpreted this imaging study as follows: Radiologist's impression: FINDINGS: LOWER THORAX: Included lung bases are clear. HEPATOBILIARY: Diffusely hypodense liver suggesting hepatic steatosis, GALLBLADDER: Gallbladder unremarkable. SPLEEN: Spleen is normal in size. PANCREAS: No focal mass or ductal dilatation. STOMACH AND GASTROINTESTINAL TRACT: Stomach is grossly unremarkable. There is no bowel distention or thickening. No CT evidence of appendicitis. ADRENALS: No adrenal nodules. KIDNEYS/URETERS: No hydronephrosis, stones or solid mass lesions. URINARY BLADDER: Partially decompressed. PELVIC VISCERA: Unremarkable PERITONEUM: No free air or fluid. LYMPH NODES: No lymphadenopathy. VASCULAR:Abdominal aorta normal in size, no aneurysm found. BONES, ABDOMINAL WALL AND SOFT TISSUES: There is a skin thickening along the posterior right lateral abdominal wall, focal area of opacity roughly measures 5 x 4 cm involving the subcutaneous fat, with attenuation suggesting fluid contents, this is concerning for possible hematoma, cannot rule out abscess. Evaluation of which is limited on this noncontrasted study. CT/CT abdomen pelvis wo con IMPRESSION: CT confirm area of skin thickening and loculated fluid along the posterior right lateral abdominal wall concerning for possible soft tissue lesion, hematoma and/or abscess. Evaluation is limited on a noncontrasted study, this however is amenable for ultrasound evaluation and possible ultrasound guided drainage if needed. ? Diffusely hypodense liver suggesting hepatic steatosis. ? (Referring physician staff is being called, to be alerted of the above findings and recommendations.) PC Procedures Abscess I/D Site: abdomen Side (if applicable): right Local Anesthetic: lidocaine 1% Amount of anesthesia used (mL): 2 Technique: incised with blade Amount of fluid expressed (mL): 10 Sent for culture/gram staining?: Yes Irrigation: Yes Packing used?: iodoform Complications: pain Critical Care Time Critical Care Time Critical Care Time: Yes Total Critical Care Time: 60 Attestation: I personally attest to this time spent taking care of the patient Discharge Plan Discharge Clinical Impression: Abdominal wall abscess, Cellulitis, Sepsis Patient Disposition: Admitted As Inpatient
--- NOTE | 2022-02-11 15:19 | PC.NURSE ---
patient away for imaging. repeat lactic acid level drawn and sent to lab for analysis. awaiting results. 20g IV access established in left AC. Will medicate upon return to ED Bed 9.
[2022-02-11 15:31] LABS: ~Lactic Acid-LAB USE ONLY 1.3 mmol/L (0.5-2.0)
[2022-02-11] MEDS: Lidocaine HCl 4 % Topical 50 ML SOLUTION 1 APPL TOPICAL (15:58)
[2022-02-11] MEDS: 0.9 % Sodium Chloride 1,000 ML 999 ML IVCONT (15:58)
[2022-02-11] MEDS: cefTRIAXone sodium 1 GM in 0.9 % Sodium Chloride 50 ML IV (15:58)
[2022-02-11] MEDS: Lidocaine HCl 1 % MPF 2 ML VIAL INFILTRATI (15:58)
[2022-02-11] MEDS: oxyCODONE HCl Immed Release 5 MG TABLET PO (16:07)
--- NOTE | 2022-02-11 17:55 | PM.CNGS ---
History of Present Illness Consult details Consult date: 02/11/22 Requesting physician: Sameera Armstrong Narrative: The patient is a 31-year-old Liberian-speaking woman with a history of morbid obesity and an abscess on her right flank. Sameera helped facilitate evaluation. The patient notes that there has been drainage. Review of Systems Constitutional: Constitutional: Reports as per [facility] Past Medical History Medical History Chest pain Elevated TSH Epidermal cyst of neck [place] (generalized anxiety disorder) Hypovitaminosis D Mild recurrent major depression Morbid obesity due to excess calories Neck mass Family History Family History Mother Stroke Father Cancer Maternal Aunt Breast cancer Surgical History Surgical History No pertinent past surgical history Social History Social History Housing: House (living with someone) Alcohol intake: never Patient Tobacco Use Status: Never used Tobacco e-Cigarette/Vaping Use: Never Used Second Hand Smoke Exposure: No Advance Directives: No Advance Directives Information Provided: No service: No Current occupational status: disabled Cognitive needs: No Hearing needs: No Vision needs: No Meds Allergies Allergy/AdvReac Type Severity Reaction Status Date / Time No Known Allergies Allergy Verified 02/09/22 15:44 Physical Exam Vital Signs: Vital Signs: Last Vital Signs Temp 98.1 F 02/11/22 12:26 Pulse 105 H 02/11/22 12:26 Resp 18 02/11/22 12:26 BP 145/79 H 02/11/22 12:26 Pulse Ox 97 02/11/22 12:26 O2 Del Method 02/11/22 12:26 BMI result Body Mass Index 42.0 On exam, the patient is morbidly obese. She is nontoxic She was placed in left lateral decubitus position to demonstrate her right flank abscess which is present in her skin fold. The abscess is approximately 4-5 cm of erythema with gross purulence draining Results Labs Result diagrams: 02/11/22 12:44 02/11/22 12:44 Labs: Abnormal lab results 02/11/22 02/11/22 02/11/22 Range/Units 12:44 12:44 12:44 WBC 15.1 H (4.8-10.8) X10*3/uL Neut % (Auto) 75.6 H (45-73) % Lymph % (Auto) 18.9 L (20-40) % Abs Immat Gran (auto) 0.05 H (0.00-0.03) X10*3/uL Absolute Neuts (auto) 11.4 H (2.0-8.3) x10*3/uL ESR (0-20) MM/HR Random Glucose 209 H (60-115) mg/dL Lactic Acid 2.5 H* (0.5-2.0) mmol/L Total Protein 8.2 H (6.5-8.0) g/dL 02/11/22 Range/Units 12:44 WBC (4.8-10.8) X10*3/uL Neut % (Auto) (45-73) % Lymph % (Auto) (20-40) % Abs Immat Gran (auto) (0.00-0.03) X10*3/uL Absolute Neuts (auto) (2.0-8.3) x10*3/uL ESR 74 H (0-20) MM/HR Random Glucose (60-115) mg/dL Lactic Acid (0.5-2.0) mmol/L Total Protein (6.5-8.0) g/dL Short CBC 02/11/22 Range/Units 12:44 WBC 15.1 H (4.8-10.8) X10*3/uL Hgb 13.4 (12.0-16.0) g/dl Hct 39.8 (37.0-47.0) % Plt Count 341 (160-400) X10*3/uL BMP 02/11/22 12:44 Sodium 137 Potassium 3.8 Chloride 102 Carbon Dioxide 24 BUN 9 Creatinine 0.78 Calcium 8.9 Liver Function 02/11/22 Range/Units 12:44 Total Bilirubin 0.3 (0.0-1.0) mg/dL Direct Bilirubin 0.2 (0.0-0.5) mg/dL AST 14 (5-31) U/L ALT 15 (0-31) U/L Alkaline Phosphatase 69 (39-117) U/L Albumin 4.1 (3.5-5.0) g/dL All other labs normal. Imaging Abdomen CT scan report/results: report reviewed and image reviewed CT scan - pelvis: report reviewed and image reviewed Additional studies: I reviewed the actual CT images and there was an approximately 5 cm abscess in the right flank that is superficial enough that it is amenable to incision and drainage Assessment and Plan (1) Abdominal wall abscess: Status: Acute (2) Cellulitis: Status: Acute (3) Morbid obesity due to excess calories: Status: Acute Plan Given the superficial nature of the abscess, I discussed the case with Sameera Armstrong. The CT report noted IR could be considered, however is Sameera and I looked at the superficial abscess, we agreed that bedside drainage was appropriate. Recommend obtaining cultures and broad-spectrum p.o. antibiotics. Care of the patient is returned to Sameera and I can see the patient on an outpatient basis as needed. Procedures Date of Service Date of Service: 02/11/22
[2022-02-11] MEDS: Morphine Sulfate 4 MG/ML CARTRIDGE IVPUSH (18:06)
[2022-02-11] MEDS: ondansetron HCL 4 MG/2 ML VIAL IVPUSH (18:07)
--- NOTE | 2022-02-11 19:55 | P.HPHOSP_ITS ---
History of Present Illness Date of Service: 02/11/22 Chief Complaint: abdominal abscess Bhutanese-speaking, history is obtained with the help of an eyeglass maker Two 1-year-old female past medical history of anxiety and depression, and recently diagnosedhypothyroidism-not yet started on medications, presents to hospital with complaints of abscess on her abdominal wall. Patient reports that she noticed a growth/redness/pain on the right lateral aspect of her abdominal wall, it progressively worsened therefore she decided to come to the hospital. She reports the abscess is significantly painful 10/10, nonradiating, constant, no relieved with over the counter analgesics. She feels feverish and has chills, denies having any chest pain, no abdominal pain nausea or vomiting, no diarrhea constipation, no urinary symptoms and no lower extremity edema. On arrival to the ED patient hemodynamically stable with a heart rate of 105, Labs are significant for WBC count of 15.1 with a left shift, ESR of 74, lactic acid of 2.5 which normalized after fluids Abdominal pelvic CT showed area of skin thickening and loculated fluid along the posterior right lateral abdominal wall concerning for possible soft tissue lesion, hematoma and/or abscess. The abscess was drained in the ED by ED PA, patient will be admitted for further med and need for IV antibiotics Review of Systems Review of Systems: Yes all other systems are reviewed and are negative [facility] Medical History Chest pain Elevated TSH Epidermal cyst of neck [place] (generalized anxiety disorder) Hypovitaminosis D Mild recurrent major depression Morbid obesity due to excess calories Neck mass Family History Mother Stroke Father Cancer Maternal Aunt Breast cancer Surgical History No pertinent past surgical history Social History Housing: House (living with someone) Alcohol intake: never Patient Tobacco Use Status: Never used Tobacco e-Cigarette/Vaping Use: Never Used Second Hand Smoke Exposure: No Advance Directives: No Advance Directives Information Provided: No service: No Current occupational status: disabled Cognitive needs: No Hearing needs: No Vision needs: No Meds Allergies Allergy/AdvReac Type Severity Reaction Status Date / Time No Known Allergies Allergy Verified 02/09/22 15:44 Active Medications: Current Medications Pharmacy Consult (Consult Rx Perform Med Rec) 1 each MISCELLANE ONCE PRN PRN Reason: Consult order Physical Exam Vital Signs and Narrative: Vital Signs: Last Vital Signs Temp 98.1 F 02/11/22 12:26 Pulse 105 H 02/11/22 12:26 Resp 18 02/11/22 12:26 BP 145/79 H 02/11/22 12:26 Pulse Ox 97 02/11/22 12:26 O2 Del Method 02/11/22 12:26 BMI result Body Mass Index 42.0 Const: General: cooperative and no acute distress [place] ation/consciousness: patient oriented x3 Eyes: General: appearance normal, both eyes and all related structures Resp: Effort & Inspection: normal respiratory effort Auscultation: clear to auscultation bilaterally Cardio: Rate: regular rate Rhythm: regular rhythm GI: Palpation (GI): Soft to palpation Auscultation: normal bowel sounds Skin: Other: Right lateral abdomen/flank has dressing in place, General skin exam: no rashes or lesions noted Neuro: General: patient oriented x3 Cognition (Neuro): normal cognition Extrem: General: Yes normal to inspection and Yes no pedal edema Results Labs CBC and Chem 7: 02/12/22 06:10 02/12/22 06:10 Labs: Laboratory Results - last 24 hr 02/11/22 02/11/22 02/11/22 12:44 12:44 12:44 MCV 89.2 MCH 30.0 MCHC 33.7 RDW 12.6 Plt Count 341 MPV 9.6 Immature Gran % (Auto) 0.3 Neut % (Auto) 75.6 H Lymph % (Auto) 18.9 L [place] % (Auto) 4.2 Eos % (Auto) 0.7 Baso % (Auto) 0.3 Lymph # (Auto) 2.9 [place] # (Auto) 0.6 Eos # (Auto) 0.1 Baso # (Auto) 0.0 Abs Immat Gran (auto) 0.05 H Absolute Neuts (auto) 11.4 H Absolute Nucleated RBC 0.000 Nucleated RBC % (auto) 0.0 ESR Anion Gap 15 Estim Creat Clear Calc 125.1 Estimated GFR > 60 Random Glucose 209 H Lactic Acid 2.5 H* Lactic Acid F/U @ 2Hr Calcium 8.9 Total Bilirubin 0.3 Direct Bilirubin 0.2 AST 14 ALT 15 Alkaline Phosphatase 69 Lactate Dehydrogenase 146 Total Protein 8.2 H Albumin 4.1 Lipase 26 Beta HCG, Quant < 2 02/11/22 02/11/22 12:44 15:08 MCV MCH MCHC RDW Plt Count MPV Immature Gran % (Auto) Neut % (Auto) Lymph % (Auto) [place] % (Auto) Eos % (Auto) Baso % (Auto) Lymph # (Auto) [place] # (Auto) Eos # (Auto) Baso # (Auto) Abs Immat Gran (auto) Absolute Neuts (auto) Absolute Nucleated RBC Nucleated RBC % (auto) ESR 74 H Anion Gap Estim Creat Clear Calc Estimated GFR Random Glucose Lactic Acid Lactic Acid F/U @ 2Hr 1.3 Calcium Total Bilirubin Direct Bilirubin AST ALT Alkaline Phosphatase Lactate Dehydrogenase Total Protein Albumin Lipase Beta HCG, Quant Imaging Radiologist's Impressions: Impressions Abdomen/Pelvis CT 02/11/22 15:30 IMPRESSION: CT confirm area of skin thickening and loculated fluid along the posterior right lateral abdominal wall concerning for possible soft tissue lesion, hematoma and/or abscess. Evaluation is limited on a noncontrasted study, this however is amenable for ultrasound evaluation and possible ultrasound guided drainage if needed. Diffusely hypodense liver suggesting hepatic steatosis. (Referring physician staff is being called, to be alerted of the above findings and recommendations.) PC Assessment and Plan (1) Sepsis: Status: Acute (2) Cellulitis: Status: Acute (3) Abdominal wall abscess: Status: Acute Plan 31-year-old female with hypothyroidism presents the hospital with abdominal wall abscess # abdominal wall abscess, cellulitis - drained in the ED - will treat with IV antibiotics - follow cultures # meets sepsis criteria - has tachycardia, leukocytosis - likely secondary cellulitis/abdominal wall abscess - likely secondary to abscess - will treat with IV antibiotics - follow cultures # hypothyroidism - patient follows up patient with endocrinology DVT prophylaxis: Lovenox Given patient's abscess, sepsis a need for IV antibiotics patient will require a minimum 2 night hospital stay for further management and monitor Quality Stroke Does the patient have a stroke diagnosis?: No VTE Prior VTE?: No VTE Risk Level:: Medical - moderate - high VTE Device Contraindication: Treatment Not Indicated VTE Drug Contraindication: N/A - Med Ordered
[2022-02-11] MEDS: Enoxaparin Sodium 40 MG/0.4 ML SYRINGE SUBCUT (21:47)
[2022-02-11] MEDS: Piperacillin Sodium/Tazobactam 3.375 GM in 0.9 % Sodium Chloride 50 ML IV (21:48)
[2022-02-12] VITALS (7 sets, daily range): BP systolic 107–140; BP diastolic 51–90; PULSE 87–100; RESP 17–18; TEMP 36.4–37.1; O2SAT 95–98
[2022-02-12 01:44] LABS: COVID-19 Test Negative (Negative)
[2022-02-12] MEDS: Piperacillin Sodium/Tazobactam 3.375 GM in 0.9 % Sodium Chloride 50 ML IV ×4 (04:03→19:35)
[2022-02-12] MEDS: oxyCODONE HCl Immed Release 5 MG TABLET PO ×3 (06:25→19:44)
[2022-02-12 06:33] LABS: Basophils Percent Auto 0.3 % (0-2); Eosinophils Absolute Auto 0.1 X10*3/uL (0.0-0.4); Hematocrit 36.1 % (37.0-47.0); Hemoglobin 12.1 g/dl (12.0-16.0); Imm Gran Abs Auto 0.04 X10*3/uL (0.00-0.03); Imm Gran Pct Auto 0.3 % (0.0-0.4); MANUAL DIFF FLAG NO; Mean Corpuscular HGB Conc 33.5 g/dl (31.0-35.0); Mean Corpuscular Hemoglobin 29.9 pg (27.0-33.0); Mean Corpuscular Volume 89.1 fL (80.0-98.0); Mean Platelet Volume 9.7 fL (9.4-12.3); Monocytes Absolute Auto 0.7 X10*3/uL (0.1-1.2); Monocytes Percent Auto 5.7 % (2-11); Neutrophils Absolute Auto 7.5 x10*3/uL (2.0-8.3); Neutrophils Percent Auto 60.7 % (45-73); Platelet Count 331 X10*3/uL (160-400); Red Blood Count 4.05 X10*6/uL (4.20-5.50); Red Cell Distribution Width 12.5 % (11.0-16.0); White Blood Count 12.3 X10*3/uL (4.8-10.8)
[2022-02-12 06:48] LABS: Anion Gap 16 (12-20); Blood Urea Nitrogen 8 mg/dL (9-16); Calcium 8.6 mg/dL (8.4-10.2); Carbon Dioxide 22 mmol/L (22-29); Chloride 105 mmol/L (96-108); Creatinine Clr Calc Pharmacy 125.1; Estimated Glomerular Filt Rate > 60; Glucose Random 141 mg/dL (60-115); Potassium 3.9 mmol/L (3.3-5.1); Sodium 139 mmol/L (135-145)
--- NOTE | 2022-02-12 08:01 | PHA.MEDREC ---
Pharmacy Consult ? Medication Reconciliation Pharmacy has completed the medication reconciliation.
--- NOTE | 2022-02-12 08:49 | MHC.CM.PN ---
CM MET WITH PT WITH THE ASSISTANCE OF [facility] [place] [facility] PT REPORTS SHE LIVES WITH A FRIEND AND IS INDEPENDENT WITH CARE PT DENIES USE OF DME OR HOME SERVICES PT IS NOT COVID VACCINATED PT DECLINES TO COMPLETE A HCP PT CONFIRMS HER PCP IS DUSTIN SALOMON CURRENT DC PLAN IS HOME WITH NO SERVICES PT WILL ARRANGE TRANSPORT
--- NOTE | 2022-02-12 08:54 | PC.NURSE ---
sleeping and easily woken, skin wpd, states pain improved after oxycodone, now w nad
[2022-02-12] MEDS: vancomycin HCL 1,250 MG in 0.9 % Sodium Chloride 250 ML 166.67 MG IV ×2 (11:13→21:45)
[2022-02-12] MEDS: 0.9 % Sodium Chloride Flush 3 ML SYRINGE IVFLUSH ×3 (11:14→19:35)
[2022-02-12] MEDS: Acetaminophen 325 MG TABLET 650 MG PO ×2 (14:48→21:50)
--- NOTE | 2022-02-12 14:50 | HO.PM.IMPN ---
Subjective Subjective Date of Service: 02/12/22 Interval History: Feels better or ready but still complaining of pain at the site of abscess No drainage noted, no fever reported No other overnight events Review of Systems Review of Systems: Yes all other systems are reviewed and are negative Physical Exam Vital Signs: Vital Signs: Last Vital Signs Temp 98 F 02/12/22 12:00 Pulse 93 02/12/22 12:00 Resp 18 02/12/22 12:00 BP 132/76 02/12/22 12:00 Pulse Ox 98 02/12/22 12:00 O2 Del Method 02/12/22 12:00 BMI result Body Mass Index 42.0 Const: Other: Constitutional : Alert, oriented, not in distress Neck : Normal inspection, Supple Cardiovascular : RRR, no JVP, no lower extremity edema Respiratory : fair bilateral air entry, no crackles, wheezes or rhonchi Gastrointestinal: soft, lax, Normal bowel sounds, Non tender Skin : Warm, Dry, right lateral abdominal wall wound covered with dressing with minimal oozing of blood, no surrounding erythema Neurological : Alert & oriented x3, No focal deficit , CN 2-12 within normal Objective Data Active Medications Acetaminophen (Acetaminophen 325 Mg Tablet) 650 mg PO Q6H PRN PRN Reason: Pain, Mild (Pain Scale 1-3) Last Admin: 02/12/22 14:48 Dose: 650 mg Documented By: JILLIAN Docusate Sodium (Docusate Sodium 100 Mg Capsule) 100 mg PO DAILY PRN PRN Reason: Constipation Enoxaparin Sodium (Enoxaparin Sodium 40 Mg/0.4 Ml Syringe) 40 mg SUBCUT Q24H [facility] Last Admin: 02/11/22 21:47 Dose: 40 mg Documented By: MARCIA Piperacillin Sod/Tazobactam (Sod 3.375 gm/ Sodium Chloride) 50 mls @ 100 mls/hr IV Q6H [facility] Last Admin: 02/12/22 14:33 Dose: 100 mls/hr Documented By: JILLIAN Vancomycin HCl 1,250 mg/ (Sodium Chloride) 250 mls @ 166.667 mls/hr IV Q12H [facility] Last Infusion: 02/12/22 14:18 Dose: 0 mls/hr Documented By: MONICA Ondansetron HCl (Ondansetron Hcl 4 Mg/2 Ml Vial) 4 mg IVPUSH Q8H PRN PRN Reason: Nausea and Vomiting Oxycodone HCl (Oxycodone Hcl Immed Release 5 Mg Tablet) 5 mg PO Q6H PRN PRN Reason: Pain, Severe (Pain Scale 7-10) Last Admin: 02/12/22 11:20 Dose: 5 mg Documented By: JENNIFER Pharmacy Consult (Consult Rx Perform Med Rec) 1 each MISCELLANE ONCE PRN PRN Reason: Consult order Pharmacy Consult (Consult Rx Vancomycin Dosing) 1 each MISCELLANE DAILY PRN PRN Reason: Consult order Sodium Chloride (0.9 % Sodium Chloride Flush 3 Ml Syringe) 3 ml IVFLUSH QSHIFT [facility] Last Admin: 02/12/22 14:33 Dose: 3 ml Documented By: JILLIAN Labs CBC & Chem 7: 02/12/22 06:10 02/12/22 06:10 Labs: Laboratory Results - last 24 hr 02/11/22 02/11/22 02/11/22 12:44 12:44 15:08 MCV MCH MCHC RDW Plt Count MPV Immature Gran % (Auto) Neut % (Auto) Lymph % (Auto) [place] % (Auto) Eos % (Auto) Baso % (Auto) Lymph # (Auto) [place] # (Auto) Eos # (Auto) Baso # (Auto) Abs Immat Gran (auto) Absolute Neuts (auto) Absolute Nucleated RBC Nucleated RBC % (auto) ESR 74 H Anion Gap Estim Creat Clear Calc Estimated GFR Random Glucose Lactic Acid F/U @ 2Hr 1.3 Calcium Total Bilirubin 0.3 Direct Bilirubin 0.2 AST 14 ALT 15 Alkaline Phosphatase 69 Lactate Dehydrogenase 146 Total Protein 8.2 H Albumin 4.1 Lipase 26 Beta HCG, Quant < 2 COVID-19 ([facility]NE) COVID-19 Clin Com 02/12/22 02/12/22 02/12/22 01:26 06:10 06:10 MCV 89.1 MCH 29.9 MCHC 33.5 RDW 12.5 Plt Count 331 MPV 9.7 Immature Gran % (Auto) 0.3 Neut % (Auto) 60.7 Lymph % (Auto) 32.0 [place] % (Auto) 5.7 Eos % (Auto) 1.0 Baso % (Auto) 0.3 Lymph # (Auto) 4.0 [place] # (Auto) 0.7 Eos # (Auto) 0.1 Baso # (Auto) 0.0 Abs Immat Gran (auto) 0.04 H Absolute Neuts (auto) 7.5 Absolute Nucleated RBC 0.000 Nucleated RBC % (auto) 0.0 ESR Anion Gap 16 Estim Creat Clear Calc 125.1 Estimated GFR > 60 Random Glucose 141 H Lactic Acid F/U @ 2Hr Calcium 8.6 Total Bilirubin Direct Bilirubin AST ALT Alkaline Phosphatase Lactate Dehydrogenase Total Protein Albumin Lipase Beta HCG, Quant COVID-19 (ROXANNE) Negative COVID-19 Clin Com See Note Microbiology Microbiology Results: Microbiology 02/11/22 12:44 Blood Culture - Preliminary Blood - Venous No growth after 24 hours. 02/11/22 18:10 Gram Stain - Final Abdomen - Abscess Routine Culture - Preliminary No growth to date. Assessment and Plan (1) Sepsis: Status: Acute (2) Cellulitis: Status: Acute Plan 31-year-old female with hypothyroidism presents the hospital with abdominal wall abscess # Sepsis 2/2 abd wall abscess Abscess drained Pending wound and blood cultures Continue with IV antibiotics Local dressing # hypothyroidism patient follows up patient with endocrinology # morbid obesity BMI of 42 Advised to lose weight DVT prophylaxis: Lovenox Given patient's abscess, sepsis a need for IV antibiotics patient will require overnight hospital stay for further management and monitor Quality Stroke Does the patient have a stroke diagnosis?: No VTE Prior VTE?: No VTE Risk Level:: Medical - moderate - high VTE Device Contraindication: Treatment Not Indicated VTE Drug Contraindication: N/A - Med Ordered
[2022-02-12] MEDS: Enoxaparin Sodium 40 MG/0.4 ML SYRINGE SUBCUT (19:35)
[2022-02-13] VITALS: BP 112/69; PULSE 80; RESP 17; TEMP 36.4; O2SAT 97
[2022-02-13] MEDS: Piperacillin Sodium/Tazobactam 3.375 GM in 0.9 % Sodium Chloride 50 ML IV ×2 (02:22→08:36)
[2022-02-13 03:25] VITALS: BP 128/59; PULSE 79; RESP 17; TEMP 36.6; O2SAT 98
[2022-02-13 08:03] VITALS: BP 131/82; PULSE 89; RESP 18; TEMP 36.7; O2SAT 99
[2022-02-13 08:21] LABS: Hematocrit 36.9 % (37.0-47.0); Hemoglobin 12.3 g/dl (12.0-16.0); Mean Corpuscular HGB Conc 33.3 g/dl (31.0-35.0); Mean Corpuscular Hemoglobin 29.9 pg (27.0-33.0); Mean Corpuscular Volume 89.8 fL (80.0-98.0); Mean Platelet Volume 9.8 fL (9.4-12.3); Platelet Count 351 X10*3/uL (160-400); Red Blood Count 4.11 X10*6/uL (4.20-5.50); Red Cell Distribution Width 12.4 % (11.0-16.0); White Blood Count 9.3 X10*3/uL (4.8-10.8)
[2022-02-13] MEDS: oxyCODONE HCl Immed Release 5 MG TABLET PO (08:34)
[2022-02-13] MEDS: 0.9 % Sodium Chloride Flush 3 ML SYRINGE IVFLUSH (08:37)
[2022-02-13 08:41] LABS: Anion Gap 15 (12-20); Blood Urea Nitrogen 6 mg/dL (9-16); Calcium 8.4 mg/dL (8.4-10.2); Carbon Dioxide 26 mmol/L (22-29); Chloride 104 mmol/L (96-108); Creatinine Clr Calc Pharmacy 137.4; Estimated Glomerular Filt Rate > 60; Glucose Random 111 mg/dL (60-115); Potassium 4.1 mmol/L (3.3-5.1); Sodium 141 mmol/L (135-145)
[2022-02-13 08:52] LABS: Vancomycin Trough 8.1 mcg/mL (10.0-20.0)
--- NOTE | 2022-02-13 09:02 | HE.PHANOTE ---
Vancomycin dosing Addedum Level was 8.1 today. Renal function is stable. Current regimen is expected to be subtherapetic. Will increase dose to 1000 mg Q12H. Expected AUC is 455. Next trough to be drawn in 24 hours on 02/14 @ 0700. Mary Dudley, MariselD
[2022-02-13] MEDS: vancomycin HCL 1,000 MG in 0.9 % Sodium Chloride 250 ML 270 MG IV (10:11)
[2022-02-13] MEDS: Acetaminophen 325 MG TABLET 650 MG PO (10:16)
--- NOTE | 2022-02-13 11:07 | P.DS_ITS ---
DS: Providers Provider Date of Service: 02/13/22 Date of admission: 02/11/22 19:52 Primary care physician: Rosey Lantigua MD Consults: 02/11/22 17:30 Consult to General Surgery Stat Consulting Provider: Jacek Joiner Reason for consultation: abscess to right flank Has provider been notified: Yes DS: Diagnosis Discharge Diagnosis (1) Sepsis: Status: Acute (2) Cellulitis: Status: Acute (3) Abdominal wall abscess: Status: Acute (4) Morbid obesity due to excess calories: Status: Acute DS: Summary Hospital Course Hospital Course: Admission note HPI Two 1-year-old female past medical history of anxiety and depression, and recently diagnosedhypothyroidism-not yet started on medications, presents to hospital with complaints of abscess on her abdominal wall.? Patient reports that she noticed a growth/redness/pain on the right lateral aspect of her abdominal w all, it progressively worsened therefore she decided to come to the hospital.? She reports the abscess is significantly painful 10/10, nonradiating, constant, no relieved with over the counter analgesics.? She feels feverish and has chills, denies having any chest pain, no abdominal pain nausea or vomiting, no diarrhea constipation, no urinary symptoms and no lower extremity edema.? On arrival to the ED patient hemodynamically stable with a heart rate of 105, Labs are significant for WBC count of 15.1 with a left shift,? ESR of 74, lactic acid of 2.5 which normalized after fluids Abdominal pelvic CT showed area of skin thickening and loculated fluid along the posterior right lateral abdominal wall concerning for possible soft tissue lesion, hematoma and/or abscess. The abscess was drained in the ED by ED PA, patient will be admitted for further med and need for IV antibiotics Hospital course The patient was admitted for evidence of sepsis secondary to abdominal wall abscess that was confirmed by CT scan that showed loculated fluid on the right lateral abdominal wall. Had bedside drainage in the emergency and admitted on broad-spectrum antibiotics of vancomycin Zosyn with good response over the course of hospital stay as the pain improved and the area of redness decreased significantly with no more drainage noted. The patient was evaluated by surgical team who recommended bedside drainage and broad-spectrum oral antibiotics at time of discharge. She can follow-up with surgery office as outpatient. Wound and Blood cultures remain negative until time of discharge. She will be discharged on doxycycline and Ceftin for 1 more week. use Motrin 400 mg 3 times a day with meals for pain control continue doxycycline and Ceftin for 1 more week To do daily dressing and keep the area dry all the time To follow-up with PCP within 1 week contact surgery office to follow-up with no improvement in the wound Time Spent with Patient Time attestation: Total time spent providing and/or coordinating discharge services: Discharge coordination time: Greater than 30 minutes Quality: Safe Use of Opioids Does Pt have an Active Cancer Diagnosis on the Problem List?: No Quality: Stroke Does the patient have a stroke diagnosis?: No Physical Exam Vital Signs: Vital Signs: Last Vital Signs Temp 98.0 F 02/13/22 08:03 Pulse 89 02/13/22 08:03 Resp 18 02/13/22 08:03 BP 131/82 02/13/22 08:03 Pulse Ox 99 02/13/22 08:03 O2 Del Method 02/13/22 08:03 BMI result Body Mass Index 42.0 Const: Other: Constitutional : Alert, oriented, not in distress Neck : Normal inspection, Supple Cardiovascular : RRR, no JVP, no lower extremity edema Respiratory : fair bilateral air entry, no crackles, wheezes or rhonchi Gastrointestinal: soft, lax, Normal bowel sounds, Non tender Skin : Warm, Dry, right lateral abdominal wall skin fold wound covered with dressing with no drainage noted, no surrounding erythema. Neurological : Alert & oriented x3, No focal deficit , CN 2-12 within normal DS: Data Data Completed and Pending Labs on day of discharge: Laboratory Results - last 24 hr 02/13/22 02/13/22 02/13/22 08:00 08:00 08:00 WBC 9.3 RBC 4.11 L Hgb 12.3 Hct 36.9 L MCV 89.8 MCH 29.9 MCHC 33.3 RDW 12.4 Plt Count 351 MPV 9.8 Absolute Nucleated RBC 0.000 Nucleated RBC % (auto) 0.0 Sodium 141 Potassium 4.1 Chloride 104 Carbon Dioxide 26 Anion Gap 15 BUN 6 L Creatinine 0.71 Estim Creat Clear Calc 137.4 Estimated GFR > 60 Random Glucose 111 Calcium 8.4 Vancomycin Trough 8.1 L Preliminary micro results at discharge 02/11/22 12:30 Blood Culture - Preliminary Blood - Venous No growth after 24 hours. 02/11/22 12:44 Blood Culture - Preliminary Blood - Venous No growth after [address] scan - abdomen: Radiologist's impression: ITS Impressions Abdomen/Pelvis CT 02/11/22 15:30 IMPRESSION: CT confirm area of skin thickening and loculated fluid along the posterior right lateral abdominal wall concerning for possible soft tissue lesion, hematoma and/or abscess. Evaluation is limited on a noncontrasted study, this however is amenable for ultrasound evaluation and possible ultrasound guided drainage if needed. Diffusely hypodense liver suggesting hepatic steatosis. (Referring physician staff is being called, to be alerted of the above findings and recommendations.) PC Discharge Plan Discharge Patient Disposition: Home, Self-Care Discharge Diagnosis: sepsis Abdominal wall abscess Referrals: Rosey Young MD [Primary Care Provider] - 1 Week Discharge Medications: New doxycycline monohydrate 100 mg capsule 100 mg PO BID Qty: 14 0RF cefuroxime axetil 500 mg tablet 500 mg PO BID Qty: 14 0RF Discharge Orders: Discharge Order (Routine); Ordered 02/13/22 Ordered By: Edgardo Phipps Diet: Advance to usual diet Activity on Discharge: As tolerated Stand Alone Forms: Patient Portal Discharge page Care Plan Goals: Read below Health Concerns: Read below Plan of Treatment: Read below Assessment: you were admitted to the hospital for evaluation of abdominal wall pain. Images were consistent with superficial abscess that was drained in the emergency. Your treated with IV antibiotics with good response over the course of hospital stay as your blood cultures remain negative. use Motrin 400 mg 3 times a day with meals for pain control continue doxycycline and Ceftin for 1 more week To do daily dressing and keep the area dry all the time To follow-up with PCP within 1 week contact surgery office to follow-up with no improvement in the wound Discharge Date/Time: 02/13/22 13:26
--- NOTE | 2022-02-13 11:09 | MHC.CM.PN ---
Patient has been medically cleared for dc to home today, self care.
== END 2022-02-13 13:26 | disposition home or self-care (01) | DRG 720 ==
LOC: HO.ED 19:36 → HO.EDOVER 20:06 → HO.S3 02-12 12:35
PROVIDERS: Physician Assistant Medical; Admitting Provider Internal Medicine; Emergency Provider Student in an Organized Health Care Education/Training Program; PCP Internal Medicine; Visit Provider Student in an Organized Health Care Education/Training Program
DX: A41.9 Sepsis, unspecified organism (principal); L02.211 Cutaneous abscess of abdominal wall; E66.01 Morbid (severe) obesity due to excess calories; E03.9 Hypothyroidism, unspecified; L03.311 Cellulitis of abdominal wall; Z68.41 Body mass index [BMI] 40.0-44.9, adult; Z20.822 Contact with and (suspected) exposure to COVID-19
CPT/HCPCS: 36415; 74176; 80048; 80076; 80202; 83605; 83615; 83690; 84702; 85025; 85027; 85652; 87040; 87071; 87205; 87635; 96361; 96374; 96375; 99285; J0696; J1650; J2270; J2405; J2543; J3370

== ENCOUNTER 2022-03-22 07:58 | Outpatient (REF) | payer OTHER, SELFPAY ==
[2022-03-22 09:13] LABS: Alanine Aminotransferase 26 U/L (0-31); Albumin Level 4.1 g/dL (3.5-5.0); Alkaline Phosphatase 66 U/L (39-117); Anion Gap 16 (12-20); Aspartate Amino Transferase 22 U/L (5-31); Bilirubin Total 0.4 mg/dL (0.0-1.0); Blood Urea Nitrogen 9 mg/dL (9-16); Calcium 9.7 mg/dL (8.4-10.2); Carbon Dioxide 27 mmol/L (22-29); Chloride 102 mmol/L (96-108); Estimated Glomerular Filt Rate > 60; Glucose Fasting 108 mg/dL (60-99); Potassium 4.2 mmol/L (3.3-5.1); Sodium 141 mmol/L (135-145); Total Protein 8.1 g/dL (6.5-8.0)
== END 2022-03-22 07:59 | disposition home or self-care (01) ==
LOC: HO.LAB 07:58
PROVIDERS: PCP Internal Medicine; Visit Provider Internal Medicine
DX: R73.02 Impaired glucose tolerance (oral) (principal)
CPT/HCPCS: 36415; 80053

== ENCOUNTER 2022-08-03 09:17 | Outpatient (REF) | payer OTHER, SELFPAY ==
[2022-08-03 10:56] LABS: Thyroid Stimulating Hormone 75.87 uIU/mL (0.32-4.0); Vitamin D 25-OH Total 10.7 ng/mL (>30)
== END 2022-08-03 09:18 | disposition home or self-care (01) ==
LOC: HO.LAB 09:17
PROVIDERS: PCP Internal Medicine; Visit Provider Internal Medicine
DX: E55.9 Vitamin D deficiency, unspecified (principal); R79.89 Other specified abnormal findings of blood chemistry
CPT/HCPCS: 36415; 82306; 84443